=== PATIENT | male | born 2000 | race African-American/Black ===

== ENCOUNTER 2023-08-22 15:56 | Emergency (ER) | payer OTHER ==
[~2023-08-22] VITALS: Ht 177.8 cm; Wt 68.0 kg
[2023-08-22 16:18] VITALS: BP_SYST 136; PULSE 82; RESP 18; TEMP 97.3; O2SAT 99
[2023-08-22 17:10] LABS: BASOPHILS % (AUTO) 0.5 % (0.0-2.0); EOSINOPHILS % (AUTO) 0.3 % (0.0-4.0); HEMATOCRIT 43.6 % (36-54); HEMOGLOBIN 14.6 g/dL (14.0-18.0); LYMPHOCYTES # (AUTO) 1.3 K/uL (1.0-5.5); LYMPHOCYTES % (AUTO) 18.7 % (20.5-51.5); MEAN CORPUSCULAR HEMOGLOBIN 30 pg (27-31); MEAN CORPUSCULAR HGB CONC 34 % (32-36); MEAN CORPUSCULAR VOLUME 88 fL (79.0-98.0); MONOCYTES # (AUTO) 0.7 K/uL (0.0-1.0); MONOCYTES % (AUTO) 10.2 % (1.7-9.3); NEUTROPHILS # (AUTO) 4.9 K/uL (1.8-7.7); NEUTROPHILS % (AUTO) 70.3 % (40.0-70.0); PLATELET COUNT (AUTO) 182 K/uL (130-430); RED BLOOD CELL COUNT(AUTO) 4.94 MIL/uL (4.2-6.2); RED CELL DISTRIBUTION WIDTH 12.7 % (9.0-15.0)
[2023-08-22 17:27] LABS: CALCIUM 8.2 mg/dL (8.4-11.0); CREATININE 1.19 mg/dL (0.55-1.30); POTASSIUM 4.3 mmol/L (3.5-5.1)
[2023-08-22 17:32] LABS: TOTAL BILIRUBIN 0.3 mg/dL (0.0-1.0); TOTAL PROTEIN, SERUM 7.7 g/dL (6.4-8.3)
[2023-08-22 18:05] LABS: CKMB RELATIVE INDEX 0.3 (0.0-2.9); CREATINE KINASE MB 2.1 ng/mL (0-3.6)
[2023-08-22 18:09] VITALS: BP_SYST 136; PULSE 82; RESP 18; TEMP 97.3; O2SAT 99
== END 2023-08-22 18:09 | disposition home or self-care (01) ==
LOC: SED 15:56
DX: Z00.00 Encounter for general adult medical examination without abnormal findings (principal); R25.2 Cramp and spasm; Z79.899 Other long term (current) drug therapy
CPT/HCPCS: 36415; 80053; 82550; 82553; 85025; 99283

== ENCOUNTER 2023-08-27 18:56 | Emergency (ER) | payer SELFPAY ==
[~2023-08-27] VITALS: Ht 172.7 cm; Wt 68.0 kg
[2023-08-27 19:07] VITALS: BP_SYST 139; PULSE 83; RESP 18; TEMP 98.3; O2SAT 97
[2023-08-27] MEDS ORDERED: IBUP-1969 PO (21:19)
[2023-08-27 21:58] VITALS: BP_SYST 125; PULSE 66; RESP 14; TEMP 97.6; O2SAT 98
== END 2023-08-27 21:56 | disposition home or self-care (01) ==
LOC: SED 18:56
DX: R00.2 Palpitations (principal); R07.89 Other chest pain; Z79.899 Other long term (current) drug therapy
CPT/HCPCS: 71045; 99283

== ENCOUNTER 2023-11-21 14:17 | Emergency (ER) | payer SELFPAY ==
[~2023-11-21] VITALS: Ht 177.8 cm; Wt 66.2 kg
[~2023-11-21 14:17] MED LIST: IBUP-1969 PO
[2023-11-21 14:21] VITALS: BP_SYST 118; PULSE 75; RESP 22; TEMP 98.3; O2SAT 98
[2023-11-21 15:32] LABS: BASOPHILS % (AUTO) 0.5 % (0.0-2.0); EOSINOPHILS # (AUTO) 0.1 K/uL (0.0-0.4); EOSINOPHILS % (AUTO) 1.6 % (0.0-4.0); HEMATOCRIT 47.1 % (36-54); LYMPHOCYTES # (AUTO) 1.6 K/uL (1.0-5.5); LYMPHOCYTES % (AUTO) 39.4 % (20.5-51.5); MEAN CORPUSCULAR HEMOGLOBIN 30 pg (27-31); MEAN CORPUSCULAR HGB CONC 34 % (32-36); MEAN CORPUSCULAR VOLUME 89 fL (79.0-98.0); MONOCYTES # (AUTO) 0.5 K/uL (0.0-1.0); MONOCYTES % (AUTO) 12.3 % (1.7-9.3); NEUTROPHILS # (AUTO) 1.9 K/uL (1.8-7.7); NEUTROPHILS % (AUTO) 46.2 % (40.0-70.0); PLATELET COUNT (AUTO) 195 K/uL (130-430); RED BLOOD CELL COUNT(AUTO) 5.31 MIL/uL (4.2-6.2); RED CELL DISTRIBUTION WIDTH 12.7 % (9.0-15.0); WHITE BLOOD COUNT (AUTO) 4.1 K/uL (4.8-10.8)
[2023-11-21 16:03] LABS: ANION GAP 7 (5-15); CALCIUM 9.3 mg/dL (8.4-11.0); CARBON DIOXIDE 32 mmol/L (23-29); CHLORIDE 102 mmol/L (98-107); CREATININE 1.26 mg/dL (0.55-1.30); GFR AFRICAN AMERICAN 90 mL/min (>90); GLUCOSE 67 mg/dL (74-106); POTASSIUM 4.5 mmol/L (3.5-5.1); SODIUM SERUM 141 mmol/L (136-145); UREA NITROGEN, BLOOD 13 mg/dL (8-21)
[2023-11-21 16:04] LABS: GFR NON AFRICAN-AMERICAN 74 mL/min (>90)
[2023-11-21 16:11] LABS: CREATINE KINASE, TOTAL 275 U/L (39-308)
== END 2023-11-21 19:22 | disposition home or self-care (01) ==
LOC: SED 14:17
DX: R07.9 Chest pain, unspecified (principal); Z79.899 Other long term (current) drug therapy
CPT/HCPCS: 36415; 71045; 80048; 82550; 84484; 85025; 93005; 99285

== ENCOUNTER 2023-12-09 17:53 | Emergency (ER) | payer SELFPAY ==
[~2023-12-09] VITALS: Ht 180.3 cm; Wt 86.2 kg
[2023-12-09 18:15] VITALS: BP_SYST 116; PULSE 78; RESP 18; TEMP 98.1; O2SAT 98
[2023-12-09 19:22] LABS: BASOPHILS % (AUTO) 0.4 % (0.0-2.0); EOSINOPHILS # (AUTO) 0.1 K/uL (0.0-0.4); EOSINOPHILS % (AUTO) 1.1 % (0.0-4.0); HEMATOCRIT 43.5 % (36-54); LYMPHOCYTES # (AUTO) 1.3 K/uL (1.0-5.5); LYMPHOCYTES % (AUTO) 28.4 % (20.5-51.5); MEAN CORPUSCULAR HEMOGLOBIN 30 pg (27-31); MEAN CORPUSCULAR HGB CONC 34 % (32-36); MEAN CORPUSCULAR VOLUME 88 fL (79.0-98.0); MONOCYTES # (AUTO) 0.5 K/uL (0.0-1.0); MONOCYTES % (AUTO) 10.7 % (1.7-9.3); NEUTROPHILS # (AUTO) 2.8 K/uL (1.8-7.7); NEUTROPHILS % (AUTO) 59.4 % (40.0-70.0); PLATELET COUNT (AUTO) 196 K/uL (130-430); RED BLOOD CELL COUNT(AUTO) 4.92 MIL/uL (4.2-6.2); RED CELL DISTRIBUTION WIDTH 12.5 % (9.0-15.0); WHITE BLOOD COUNT (AUTO) 4.8 K/uL (4.8-10.8)
[2023-12-09 19:26] LABS: CALCIUM 9.2 mg/dL (8.4-11.0); CREATININE 1.19 mg/dL (0.55-1.30); POTASSIUM 4.2 mmol/L (3.5-5.1)
[2023-12-09] MEDS ORDERED: NACL 0.9% 1,000 ML IV ONE (19:45)
[2023-12-09 20:03] LABS: CKMB RELATIVE INDEX 0.3 (0.0-2.9); CREATINE KINASE MB 2.2 ng/mL (0-3.6)
[2023-12-09 21:04] VITALS: BP_SYST 116; PULSE 78; RESP 18; TEMP 98.1; O2SAT 98
== END 2023-12-09 21:04 | disposition home or self-care (01) ==
LOC: SED 17:53
DX: M62.82 Rhabdomyolysis (principal); Z79.899 Other long term (current) drug therapy
CPT/HCPCS: 99283; 96360; 80048; 82550; 82553; 85025; 36415; J7030

== ENCOUNTER 2023-12-11 21:18 | Emergency (ER) | payer OTHER ==
[~2023-12-11] VITALS: Ht 177.8 cm; Wt 66.2 kg
[2023-12-11 21:27] VITALS: BP_SYST 131; PULSE 68; RESP 19; TEMP 98.5; O2SAT 100
[2023-12-12] MEDS ORDERED: NAPR-1172 PO (00:04)
[2023-12-12 00:06] VITALS: BP_SYST 131; PULSE 68; RESP 19; TEMP 98.5; O2SAT 100
== END 2023-12-12 00:06 | disposition home or self-care (01) ==
LOC: SED 21:18
DX: S29.011A Strain of muscle and tendon of front wall of thorax, initial encounter (principal); Z79.899 Other long term (current) drug therapy; X58.XXXA Exposure to other specified factors, initial encounter; Y93.89 Activity, other specified; Y92.89 Other specified places as the place of occurrence of the external cause; Y99.8 Other external cause status
CPT/HCPCS: 71045; 93005; 99283

== ENCOUNTER 2023-12-19 20:16 | Emergency (ER) | payer OTHER ==
[~2023-12-19] VITALS: Ht 177.8 cm; Wt 68.0 kg
[~2023-12-19 20:16] MED LIST changes: +NAPR-1172 PO
[2023-12-19 20:30] VITALS: BP_SYST 123; PULSE 72; RESP 16; TEMP 97.6; O2SAT 98
[2023-12-19] MEDS ORDERED: IBUP-1969 PO (21:14)
[2023-12-19 21:29] VITALS: BP_SYST 123; PULSE 72; RESP 16; TEMP 97.6; O2SAT 98
== END 2023-12-19 21:29 | disposition home or self-care (01) ==
LOC: SED 20:16
DX: S93.401A Sprain of unspecified ligament of right ankle, initial encounter (principal); S63.502A Unspecified sprain of left wrist, initial encounter; W01.0XXA Fall on same level from slipping, tripping and stumbling without subsequent striking against object, initial encounter; Y93.89 Activity, other specified; Y92.89 Other specified places as the place of occurrence of the external cause; Y99.8 Other external cause status
CPT/HCPCS: 99284

== ENCOUNTER 2023-12-31 17:09 | Emergency (ER) | payer OTHER ==
[~2023-12-31] VITALS: Ht 177.8 cm; Wt 68.0 kg
[2023-12-31 17:30] VITALS: BP_SYST 131; PULSE 60; RESP 18; TEMP 97.9; O2SAT 98
[2023-12-31 19:59] LABS: BASOPHILS % (AUTO) 0.4 % (0.0-2.0); EOSINOPHILS # (AUTO) 0.1 K/uL (0.0-0.4); EOSINOPHILS % (AUTO) 1.5 % (0.0-4.0); HEMATOCRIT 44.9 % (36-54); HEMOGLOBIN 15.2 g/dL (14.0-18.0); LYMPHOCYTES # (AUTO) 2.1 K/uL (1.0-5.5); LYMPHOCYTES % (AUTO) 42.8 % (20.5-51.5); MEAN CORPUSCULAR HEMOGLOBIN 30 pg (27-31); MEAN CORPUSCULAR HGB CONC 34 % (32-36); MEAN CORPUSCULAR VOLUME 89 fL (79.0-98.0); MONOCYTES # (AUTO) 0.6 K/uL (0.0-1.0); NEUTROPHILS # (AUTO) 2.1 K/uL (1.8-7.7); NEUTROPHILS % (AUTO) 42.3 % (40.0-70.0); PLATELET COUNT (AUTO) 193 K/uL (130-430); RED BLOOD CELL COUNT(AUTO) 5.04 MIL/uL (4.2-6.2); RED CELL DISTRIBUTION WIDTH 12.9 % (9.0-15.0); WHITE BLOOD COUNT (AUTO) 4.8 K/uL (4.8-10.8)
[2023-12-31 20:07] LABS: CALCIUM 9.2 mg/dL (8.4-11.0); CREATININE 1.11 mg/dL (0.55-1.30); POTASSIUM 4.5 mmol/L (3.5-5.1)
[2023-12-31 20:33] LABS: CKMB RELATIVE INDEX 0.2 (0.0-2.9); CREATINE KINASE MB 1.7 ng/mL (0-3.6)
[2023-12-31] MEDS ORDERED: DICL20GE TP (20:48)
[2023-12-31 21:00] VITALS: BP_SYST 129; PULSE 61; RESP 18; TEMP 97.9; O2SAT 98
== END 2023-12-31 20:52 | disposition home or self-care (01) ==
LOC: SED 17:09
DX: M62.82 Rhabdomyolysis (principal); Z79.899 Other long term (current) drug therapy
CPT/HCPCS: 36415; 80048; 82550; 82553; 85025; 99284

== ENCOUNTER 2024-01-14 22:03 | Emergency (ER) | payer OTHER ==
[~2024-01-14] VITALS: Ht 177.8 cm; Wt 68.5 kg
[~2024-01-14 22:03] MED LIST changes: +DICL20GE TP
[2024-01-14 22:07] VITALS: BP_SYST 116; PULSE 74; RESP 18; TEMP 98.2; O2SAT 98
[2024-01-15] MEDS ORDERED: LIDO-54 TD (02:29)
[2024-01-15 02:40] VITALS: BP_SYST 120; PULSE 73; RESP 17; O2SAT 100
== END 2024-01-15 02:40 | disposition home or self-care (01) ==
LOC: SED 22:03
DX: S39.011A Strain of muscle, fascia and tendon of abdomen, initial encounter (principal); R74.8 Abnormal levels of other serum enzymes; Z79.899 Other long term (current) drug therapy; X50.0XXA Overexertion from strenuous movement or load, initial encounter; Y93.89 Activity, other specified; Y92.89 Other specified places as the place of occurrence of the external cause; Y99.8 Other external cause status
CPT/HCPCS: 36415; 82550; 99283

== ENCOUNTER 2024-02-03 00:35 | Emergency (ER) | payer OTHER ==
[~2024-02-03] VITALS: Ht 177.8 cm; Wt 68.5 kg
[~2024-02-03 00:35] MED LIST changes: +LIDO-54 TD
[2024-02-03 00:42] VITALS: BP_SYST 120; PULSE 66; RESP 20; TEMP 98.1; O2SAT 98
[2024-02-03 01:25] LABS: BASOPHILS % (AUTO) 0.5 % (0.0-2.0); EOSINOPHILS # (AUTO) 0.1 K/uL (0.0-0.4); EOSINOPHILS % (AUTO) 1.3 % (0.0-4.0); HEMATOCRIT 41.3 % (36-54); HEMOGLOBIN 14.2 g/dL (14.0-18.0); LYMPHOCYTES # (AUTO) 2.1 K/uL (1.0-5.5); LYMPHOCYTES % (AUTO) 40.6 % (20.5-51.5); MEAN CORPUSCULAR HEMOGLOBIN 30 pg (27-31); MEAN CORPUSCULAR HGB CONC 34 % (32-36); MEAN CORPUSCULAR VOLUME 87 fL (79.0-98.0); MONOCYTES # (AUTO) 0.5 K/uL (0.0-1.0); MONOCYTES % (AUTO) 10.5 % (1.7-9.3); NEUTROPHILS # (AUTO) 2.4 K/uL (1.8-7.7); NEUTROPHILS % (AUTO) 47.1 % (40.0-70.0); PLATELET COUNT (AUTO) 160 K/uL (130-430); RED BLOOD CELL COUNT(AUTO) 4.74 MIL/uL (4.2-6.2); RED CELL DISTRIBUTION WIDTH 12.8 % (9.0-15.0); WHITE BLOOD COUNT (AUTO) 5.2 K/uL (4.8-10.8)
[2024-02-03 01:39] LABS: CALCIUM 8.8 mg/dL (8.4-11.0); CREATININE 1.41 mg/dL (0.55-1.30); POTASSIUM 3.9 mmol/L (3.5-5.1)
[2024-02-03 02:16] LABS: CKMB RELATIVE INDEX 0.2 (0.0-2.9); CREATINE KINASE MB 1.7 ng/mL (0-3.6)
[2024-02-03] MEDS: NACL 0.9% 1,000 ML IV ONE ×2 (02:45→03:33)
[2024-02-03 03:41] LABS: BILIRUBIN,URINE NEGATIVE (NEGATIVE); BLOOD, URINE NEGATIVE (NEGATIVE); CLARITY/URINE CLEAR (CLEAR); COLOR,URINE YELLOW (YELLOW); GLUCOSE,URINE NEGATIVE (NEGATIVE); KETONES,URINE NEGATIVE (NEGATIVE); LEUKOCYTE ESTERASE ,URINE NEGATIVE (NEGATIVE); NITRITE, URINE NEGATIVE (NEGATIVE); PROTEIN URINE NEGATIVE (NEGATIVE); UROBILINOGEN,URINE 0.2 (0.2-1.0)
[2024-02-03 04:20] VITALS: BP_SYST 118; PULSE 56; RESP 18; TEMP 98.2; O2SAT 98
== END 2024-02-03 04:20 | disposition home or self-care (01) ==
LOC: SED 00:35
DX: R74.8 Abnormal levels of other serum enzymes (principal); N28.9 Disorder of kidney and ureter, unspecified; M62.82 Rhabdomyolysis; Z79.899 Other long term (current) drug therapy
CPT/HCPCS: 99283; 96360; 96361; 80048; 81001; 82550; 82553; 85025; 36415; 81003; J7030

== ENCOUNTER 2024-02-05 22:50 | Emergency (ER) | payer OTHER ==
[~2024-02-05] VITALS: Ht 177.8 cm; Wt 68.0 kg
[2024-02-05 22:59] VITALS: BP_SYST 121; PULSE 80; RESP 18; TEMP 98.2
[2024-02-06] MEDS: ACETAMINOPHEN 500 MG TABLET PO ONE (01:23)
[2024-02-06 01:57] LABS: CALCIUM 8.6 mg/dL (8.4-11.0); CREATININE 1.09 mg/dL (0.55-1.30); POTASSIUM 3.9 mmol/L (3.5-5.1)
[2024-02-06 02:23] LABS: CKMB RELATIVE INDEX 0.3 (0.0-2.9); CREATINE KINASE MB 1.8 ng/mL (0-3.6)
[2024-02-06 02:30] VITALS: BP_SYST 121; PULSE 80; RESP 18; TEMP 98.2
== END 2024-02-06 02:31 | disposition home or self-care (01) ==
LOC: SED 22:50
DX: R74.8 Abnormal levels of other serum enzymes (principal); Z71.1 Person with feared health complaint in whom no diagnosis is made
CPT/HCPCS: 36415; 80048; 82550; 82553; 99283

== ENCOUNTER 2024-03-20 18:01 | Emergency (ER) | payer OTHER ==
[~2024-03-20] VITALS: Ht 177.8 cm; Wt 68.0 kg
[2024-03-20 18:20] VITALS: BP_SYST 117; PULSE 64; RESP 16; TEMP 97.9; O2SAT 98
[2024-03-20] MEDS ORDERED: IBUP-1969 PO (19:51)
[2024-03-20] MEDS ORDERED: ACET-2634 PO (19:51)
[2024-03-20] MEDS: IBUPROFEN 600 MG TABLET PO ONE (19:57)
[2024-03-20 19:58] VITALS: BP_SYST 117; PULSE 64; RESP 16; TEMP 97.9; O2SAT 98
== END 2024-03-20 19:58 | disposition home or self-care (01) ==
LOC: SED 18:01
DX: M25.572 Pain in left ankle and joints of left foot (principal)
CPT/HCPCS: 99284

== ENCOUNTER 2024-03-20 21:21 | Emergency (ER) | payer OTHER ==
[~2024-03-20] VITALS: Ht 177.8 cm; Wt 68.0 kg
[~2024-03-20 21:21] MED LIST changes: +ACET-2634 PO
[2024-03-20 21:32] VITALS: BP_SYST 139; PULSE 87; RESP 16; TEMP 98.5; O2SAT 99
[2024-03-20] MEDS: DIPHENHYDRAMINE INJ 50 MG/ML VIAL IM ONE (22:09)
[2024-03-20 23:22] VITALS: BP_SYST 137; PULSE 71; RESP 18; TEMP 97.2; O2SAT 98
== END 2024-03-20 23:22 | disposition home or self-care (01) ==
LOC: SED 21:21
DX: T78.40XA Allergy, unspecified, initial encounter (principal); L29.8 Other pruritus; Z88.0 Allergy status to penicillin; Y92.89 Other specified places as the place of occurrence of the external cause
CPT/HCPCS: 99283; 96372; J1200; 99282

== ENCOUNTER 2024-04-15 21:58 | Emergency (ER) | payer OTHER ==
[~2024-04-15] VITALS: Ht 177.8 cm; Wt 68.5 kg
[2024-04-15 22:19] VITALS: BP_SYST 129; PULSE 63; RESP 17; TEMP 98.2; O2SAT 98
[2024-04-15 22:59] LABS: MEAN CORPUSCULAR HEMOGLOBIN 30 pg (27-31)
[2024-04-15 23:31] LABS: BASOPHILS % (AUTO) 0.3 % (0.0-2.0); EOSINOPHILS % (AUTO) 0.7 % (0.0-4.0); HEMATOCRIT 46.4 % (36-54); HEMOGLOBIN 15.9 g/dL (14.0-18.0); LYMPHOCYTES # (AUTO) 1.5 K/uL (1.0-5.5); LYMPHOCYTES % (AUTO) 27.2 % (20.5-51.5); MEAN CORPUSCULAR HGB CONC 34 % (32-36); MEAN CORPUSCULAR VOLUME 87 fL (79.0-98.0); MONOCYTES # (AUTO) 0.5 K/uL (0.0-1.0); MONOCYTES % (AUTO) 8.5 % (1.7-9.3); NEUTROPHILS # (AUTO) 3.6 K/uL (1.8-7.7); NEUTROPHILS % (AUTO) 63.3 % (40.0-70.0); PLATELET COUNT (AUTO) 169 K/uL (130-430); RED BLOOD CELL COUNT(AUTO) 5.31 MIL/uL (4.2-6.2); RED CELL DISTRIBUTION WIDTH 12.2 % (9.0-15.0); WHITE BLOOD COUNT (AUTO) 5.7 K/uL (4.8-10.8)
[2024-04-15] MEDS: LIDOCAINE PATCH 5% 1 EA TP ONE (23:35)
[2024-04-15] MEDS: KETOROLAC TROMETHAMINE 15 MG VIAL IM ONE (23:35)
[2024-04-15] MEDS: methocarbamoL 500 MG TABLET PO ONE (23:36)
[2024-04-15] MEDS: ACETAMINOPHEN 325 MG TABLET PO ONE (23:36)
[2024-04-15 23:48] LABS: ALBUMIN 4.3 g/dL (3.4-4.8); BILIRUBIN,DIRECT 0.1 mg/dL (0.0-0.3); CALCIUM 9.4 mg/dL (8.4-11.0); CREATININE 1.48 mg/dL (0.55-1.30); POTASSIUM 4.4 mmol/L (3.5-5.1); TOTAL BILIRUBIN 0.5 mg/dL (0.0-1.0); TOTAL PROTEIN, SERUM 8.1 g/dL (6.4-8.3)
[2024-04-15 23:55] LABS: BILIRUBIN,URINE NEGATIVE (NEGATIVE); BLOOD, URINE NEGATIVE (NEGATIVE); CLARITY/URINE CLEAR (CLEAR); COLOR,URINE YELLOW (YELLOW); GLUCOSE,URINE NEGATIVE (NEGATIVE); KETONES,URINE NEGATIVE (NEGATIVE); LEUKOCYTE ESTERASE ,URINE NEGATIVE (NEGATIVE); NITRITE, URINE NEGATIVE (NEGATIVE); PH,URINE 6.5 (5.0-8.0); PROTEIN URINE NEGATIVE (NEGATIVE); UROBILINOGEN,URINE 0.2 (0.2-1.0)
[2024-04-16 00:09] LABS: CKMB RELATIVE INDEX 0.3 (0.0-2.9)
[2024-04-16] MEDS ORDERED: METH-634 PO (00:23)
[2024-04-16] MEDS ORDERED: LIDO700A30 TP (00:23)
[2024-04-16] MEDS ORDERED: ACET-2634 PO (00:23)
== END 2024-04-16 00:19 | disposition home or self-care (01) ==
LOC: SED 21:58
DX: R10.9 Unspecified abdominal pain (principal); N28.9 Disorder of kidney and ureter, unspecified; Z88.0 Allergy status to penicillin; Z88.1 Allergy status to other antibiotic agents
CPT/HCPCS: 99283; 96374; 80076; 80048; 81001; 82550; 82553; 85025; 36415; 81003; J1885

== ENCOUNTER 2024-04-27 11:39 | Emergency (ER) | payer OTHER ==
[~2024-04-27] VITALS: Ht 177.8 cm; Wt 65.8 kg
[~2024-04-27 11:39] MED LIST changes: +LIDO700A30 TP; +METH-634 PO
[2024-04-27 11:48] VITALS: BP_SYST 118; PULSE 69; RESP 18; TEMP 98.1; O2SAT 97
[2024-04-27 12:56] LABS: CALCIUM 9.5 mg/dL (8.4-11.0); CREATININE 1.34 mg/dL (0.55-1.30); POTASSIUM 4.7 mmol/L (3.5-5.1)
[2024-04-27 13:22] VITALS: BP_SYST 118; PULSE 69; RESP 18; TEMP 98.1; O2SAT 97
== END 2024-04-27 13:21 | disposition home or self-care (01) ==
LOC: SED 11:39
DX: N28.9 Disorder of kidney and ureter, unspecified (principal); Z88.0 Allergy status to penicillin; Z88.1 Allergy status to other antibiotic agents; Z79.899 Other long term (current) drug therapy; Z79.2 Long term (current) use of antibiotics
CPT/HCPCS: 36415; 80048; 99283